=== PATIENT | male | born 1990 | race Caucasian/White ===

== ENCOUNTER 2018-03-05 10:06 | Emergency (ER) | payer OTHER ==
[2018-03-05 10:31] VITALS: BP 122/75; PULSE 73; RESP 18; TEMP 98.5
--- NOTE | 2018-03-05 11:50 | XR ---
EXAMINATION TYPE: XR lumbar spine 2 or 3V DATE OF EXAM: 03/05/2018 CLINICAL HISTORY: Increasing chronic low back pain. TECHNIQUE: Frontal and lateral images of the lumbar spine are obtained. COMPARISON: 08/24/2010 FINDINGS: There are 5 lumbar type vertebral bodies identified. There is a hypoplastic left 12th rib identified. The lumbar spine shows satisfactory alignment without evidence of acute fracture or dislo cation. Vertebral body heights and disk space heights are within normal limits. The overlying soft tissue appears unremarkable. IMPRESSION: No acute fracture or malalignment is seen in the lumbar spine.
--- NOTE | 2018-03-05 11:50 | ED ---
General Adult HPI - General Chief complaint: Back Pain/Injury Stated complaint: Back Pain Time Seen by Provider: 03/05/18 11:13 Source: patient, RN notes reviewed Mode of arrival: ambulatory Limitations: no limitations - History of Present Illness Initial comments: Patient 27-year-old male presented to the emergency room today with a chief complaint of increased lower back pain over the last month. He does admit that he's had some chronic back problems over the last few years. He states a month ago he was playing basketball went up to jump ball came down and had increased pain in his lower back that radiates down both left and right legs. He states worse with certain movements are particular states that when he goes from a seated to standing position pain increases. Patient does admit to a numbness sensation going down the back of the legs both on left and right at times. Denies any bowel or bladder incontinence retention. Denies any saddle anesthesia. Patient states he has not been taking anything for the symptoms. States he has tried to follow-up family doctor. They recommended physical therapy. Patient denies any recent fever, chills, shortness of breath, chest pain, abdominal pain, nausea or vomiting, headaches or visual changes, or any other complaints. - Related Data Previous Rx's Medication Instructions Recorded Cyclobenzaprine [Flexeril] 10 mg PO TID #20 tab 03/05/18 Dexamethasone 0.75 mg PO DIRECTED #12 tablet 03/05/18 Ibuprofen [Motrin] 600 mg PO Q6HR PRN #40 day 03/05/18 Allergies Allergy/AdvReac Type Severity Reaction Status Date / Time No Known Allergies Allergy Verified 03/05/18 10:31 Review of Systems ROS Statement: Those systems with pertinent positive or pertinent negative responses have been documented in the HPI. ROS Other: All systems not noted in ROS Statement are negative. Past Medical History Additional Past Medical History / Comment(s): chronic back pain History of Any Multi-Drug Resistant Organisms: None Reported Past Surgical History: Hernia Repair Past Psychological History: No Psychological Hx Reported Smoking Status: Light tobacco smoker Past Alcohol Use History: None Reported Past Drug Use History: None Reported General Exam - General Exam Comments Initial Comments: General: The patient is awake and alert, in no distress, and does not appear acutely ill. Eye: Pupils are equal, round and reactive to light, extra-ocular movements are intact. No nystagmus. There is normal conjunctiva bilaterally. No signs of icterus. Ears, nose, mouth and throat: There are moist mucous membranes and no oral lesions. Neck: The neck is supple, there is no tenderness or JVD. Cardiovascular: There is a regular rate and rhythm. No murmur, rub or gallop is appreciated. Respiratory: Lungs are clear to auscultation, respirations are non-labored, breath sounds are equal. No wheezes, stridor, rales, or rhonchi. Gastrointestinal: Soft, non-distended, non-tender abdomen without masses or organomegaly noted. There is no rebound or guarding present. No CVA tenderness. Musculoskeletal: Normal ROM. Patient normal appearance of thoracic and lumbar spine with no step-off or deformity. Mild tenderness lower lumbar L5-S1. tender both left and right sides in this area.. Strength 5/5. Sensation intact. Pulses equal bilaterally 2+. Neurological: A&O x 3. CN II-XII intact, There are no obvious motor or sensory deficits. Coordination appears grossly intact. Speech is normal. Skin: Skin is warm and dry and no rashes or lesions are noted. Psychiatric: Cooperative, appropriate mood & affect, normal judgment. Limitations: no limitations Course Vital Signs 03/05/18 10:28 Temperature 98.5 F Pulse Rate 73 Respiratory 18 Rate Blood Pressure 122/75 O2 Sat by Pulse 100 Oximetry Medical Decision Making - Medical Decision Making Patient reexamined showing no signs of distress. Resting comfortably. Patient' s x-rays negative for any acute abnormality. Was discussed with the patient about following up for further evaluation with MRI. Patient has bilateral leg numbness tingling at times. No bowel or bladder incontinence retention. No saddle anesthesia. Signs and symptoms for immediate return to emergency room or discussed with the patient in detail. Patient is advised to start anti- inflammatories with coarse steroids. He'll also be given a muscle relaxer to use but is advised that it may make him drowsy. Advised him to return for any other concerns. Disposition Clinical Impression: Acute low back pain Disposition: HOME SELF-CARE Condition: Good Instructions: Acute Low Back Pain (ED) Additional Instructions: Please follow-up family doctor/back specialist for further evaluation. Please use medications as prescribed. Please return to emergency room symptoms increase or worsen. Prescriptions: Cyclobenzaprine [Flexeril] 10 mg PO TID #20 tab Dexamethasone 0.75 mg PO DIRECTED #12 tablet Ibuprofen [Motrin] 600 mg PO Q6HR PRN #40 day PRN Reason: Pain Is patient prescribed a controlled substance at d/c from ED?: No Referrals: None,Stated [Primary Care Provider] - 1-2 days Hilaria Segura, [Doctor of Osteopathic Medicine] - 1-2 days Time of Disposition: 12:00
[2018-03-05] MEDS ORDERED: KETOROLAC 60 MG/2 ML VIAL IM STA (12:04)
== END 2018-03-05 12:15 | disposition home or self-care (01) ==
LOC: EC 10:06
DX: M54.5 Low back pain (principal); F17.200 Nicotine dependence, unspecified, uncomplicated; Z98.890 Other specified postprocedural states; X58.XXXA Exposure to other specified factors, initial encounter; Y93.67 Activity, basketball
CPT/HCPCS: 72100; 99283; 96372; J1885

== ENCOUNTER 2018-05-31 19:28 | Emergency (ER) | payer OTHER ==
[2018-05-31 19:48] VITALS: BP 130/74; PULSE 68; RESP 20; TEMP 98.7
[2018-05-31] MEDS ORDERED: KETOROLAC 30 MG/ML 1 ML VIAL IM STA (21:23)
[2018-05-31] MEDS ORDERED: ORPHENADRINE 30 MG/ML 2 ML VIAL IM STA (21:23)
--- NOTE | 2018-05-31 21:24 | ED ---
General Adult HPI - General Chief complaint: Back Pain/Injury Stated complaint: follow up/back pain Time Seen by Provider: 05/31/18 20:32 Source: patient, family, RN notes reviewed Mode of arrival: ambulatory Limitations: no limitations - History of Present Illness Initial comments: 27-year-old male presents the emergency department for a chief complaint of chronic back pain. Patient states this has been ongoing for years. Patient states he sometimes has flares of the back pain. Patient states when this occurred months ago he came to the emergency department and had a pain shot. Patient states that helped for the next few months until it worsened again a few weeks ago. Patient denies any injuries. He states pain is worsened with movement. He denies any saddle anesthesia or bladder or bowel changes. He denies any pain with urination. Patient also complains of left toe pain. He states 7 weeks ago he dropped a heavy object on the left toe. He states that it is improving but he would like it evaluated. Patient has no other complaints at this time including shortness of breath, chest pain, abdominal pain, nausea or vomiting, headache, or visual changes. - Related Data Home Medications Medication Instructions Recorded Confirmed No Known Home Medications 05/31/18 05/31/18 Allergies Allergy/AdvReac Type Severity Reaction Status Date / Time No Known Allergies Allergy Verified 05/31/18 19:48 Review of Systems ROS Statement: Those systems with pertinent positive or pertinent negative responses have been documented in the HPI. ROS Other: All systems not noted in ROS Statement are negative. Past Medical History Additional Past Medical History / Comment(s): chronic back pain History of Any Multi-Drug Resistant Organisms: None Reported Past Surgical History: Hernia Repair Past Psychological History: No Psychological Hx Reported Smoking Status: Light tobacco smoker Past Alcohol Use History: None Reported Past Drug Use History: None Reported General Exam Limitations: no limitations General appearance: alert, in no apparent distress Head exam: Present: atraumatic, normocephalic, normal inspection Eye exam: Present: normal appearance, PERRL, EOMI. Absent: scleral icterus, conjunctival injection, periorbital swelling ENT exam: Present: normal exam, mucous membranes moist Neck exam: Present: normal inspection, full ROM. Absent: tenderness, meningismus, lymphadenopathy Respiratory exam: Present: normal lung sounds bilaterally. Absent: respiratory distress, wheezes, rales, rhonchi, stridor Cardiovascular Exam: Present: regular rate, normal rhythm, normal heart sounds. Absent: systolic murmur, diastolic murmur, rubs, gallop, clicks GI/Abdominal exam: Present: soft, normal bowel sounds. Absent: distended, tenderness, guarding, rebound, rigid Extremities exam: Present: normal capillary refill (Capillary refill less than 2 seconds and DP pulse 2+ and lower extremities bilaterally), other (Sensation intact in lower extremities bilaterally). Absent: joint swelling (No swelling, ecchymosis, erythema, evidence of trauma of the left great toe. No evidence of infection.) Back exam: Present: paraspinal tenderness (Minimal paraspinal tenderness bilaterally in the lumbar area), vertebral tenderness (Minimal lumbar tenderness ) Neurological exam: Present: alert, oriented X3, CN II-XII intact Psychiatric exam: Present: normal affect, normal mood Course Vital Signs 05/31/18 19:44 Temperature 98.7 F Pulse Rate 68 Respiratory 20 Rate Blood Pressure 130/74 O2 Sat by Pulse 99 Oximetry Medical Decision Making - Medical Decision Making 87-year-old male presents for chronic back pain specifically requesting injection for pain. Patient states he received Toradol in the past and it helped for months. No saddle anesthesia, bladder or bowel changes. Patient denies IV drug abuse, fevers or chills, history of cancer, or chronic steroid use. Denies any recent injuries. On exam neurovascular intact in the lower extremities bilaterally. Minimal lumbar spine tenderness. Patient has about 45 of flexion in the lumbar spine. Patient was given Toradol as well as Norflex. He states he has a ride home. He was also given a follow-up to Dr. Segura. He was educated to return here if he has any worsening symptoms such as bladder or bowel changes or saddle anesthesia. These instructions were given both in writing and verbally. The patient voices understanding. No evidence of trauma of the left toe. Gait normal. I did offer x-ray the patient refuses at this time and states he does not think it is broken. He just wanted to make sure I didn't see anything obvious on the toe. Disposition Clinical Impression: Back pain Disposition: HOME SELF-CARE Condition: Good Instructions: Acute Low Back Pain (ED), Chronic Back Pain (ED) Additional Instructions: Please follow up with primary care or orthopedics. Please return to the emergency department if you have any worsening symptoms, bladder or bowel changes, or numbness of the groin or buttock Is patient prescribed a controlled substance at d/c from ED?: No Referrals: Hilaria Segura DO [Doctor of Osteopathic Medicine] - 1-2 days Shavon German MD [STAFF PHYSICIAN] - 1-2 days Time of Disposition: 21:23
== END 2018-05-31 21:43 | disposition home or self-care (01) ==
LOC: EC 19:28
DX: G89.29 Other chronic pain (principal); M54.9 Dorsalgia, unspecified; M79.675 Pain in left toe(s); F17.200 Nicotine dependence, unspecified, uncomplicated
CPT/HCPCS: 99283; 96372 ×2; J2360; J1885

== ENCOUNTER 2019-05-14 08:21 | Emergency (ER) | payer OTHER ==
[2019-05-14 08:28] VITALS: BP 134/90; PULSE 91; RESP 17; TEMP 98
[2019-05-14] MEDS ORDERED: DEXAMETHASONE SOD PHOSPHATE 10 MG/ML 1 ML VIAL IM STA (08:38)
--- NOTE | 2019-05-14 08:47 | ED ---
General Adult HPI - General Chief complaint: Back Pain/Injury Stated complaint: BACK PAIN Time Seen by Provider: 05/14/19 08:30 Source: patient, RN notes reviewed Mode of arrival: ambulatory Limitations: physical limitation - History of Present Illness Initial comments: Patient is a pleasant 28-year-old male presenting to the emergency Department with complaints of back pain. Patient has chronic back pain over the past couple of years. Patient has gone to neurologist. Patient was getting epidurals. Patient recently let his insurance lapsed because he did not sign 1 Of 3 on a piece of paper. Patient states she is the process of getting this back. Patient states back discomfort has increased because he has not been getting his epidurals recently. Patient requests Decadron injection. Patient refuses Toradol stating that it does not help at all. Patient states discomfort radiates mostly on the left leg however occasionally the right leg. No incontinence or retention of bowel or bladder. No new weakness. Patient has had previous MRI. Patient states he may be having surgery in the future based on neurology recommendations if epidurals did not help. - Related Data Previous Rx's Medication Instructions Recorded Dexamethasone [Decadron] 4 mg PO BID #8 tablet 05/14/19 Allergies Allergy/AdvReac Type Severity Reaction Status Date / Time No Known Allergies Allergy Verified 05/31/18 19:48 Review of Systems ROS Statement: Those systems with pertinent positive or pertinent negative responses have been documented in the HPI. ROS Other: All systems not noted in ROS Statement are negative. Constitutional: Denies: fever Eyes: Denies: eye pain ENT: Denies: ear pain Respiratory: Denies: cough Cardiovascular: Denies: chest pain Endocrine: Denies: fatigue Gastrointestinal: Denies: abdominal pain Genitourinary: Denies: dysuria Musculoskeletal: Reports: as per HPI, back pain Skin: Denies: rash Neurological: Denies: weakness Past Medical History Additional Past Medical History / Comment(s): chronic back pain History of Any Multi-Drug Resistant Organisms: None Reported Past Surgical History: Hernia Repair Past Psychological History: No Psychological Hx Reported Smoking Status: Light tobacco smoker Past Alcohol Use History: None Reported Past Drug Use History: None Reported General Exam Limitations: physical limitation General appearance: alert, in no apparent distress Head exam: Present: normocephalic Eye exam: Present: normal appearance ENT exam: Present: normal oropharynx Neck exam: Present: normal inspection Respiratory exam: Present: normal lung sounds bilaterally Cardiovascular Exam: Present: regular rate, normal rhythm GI/Abdominal exam: Present: soft. Absent: distended, tenderness, pulsatile mass Extremities exam: Present: normal inspection Back exam: Present: normal inspection. Absent: tenderness Neurological exam: Present: alert. Absent: motor sensory deficit Expanded Motor strength exam: RLE: 5, LLE: 5 Psychiatric exam: Present: normal affect, normal mood Skin exam: Present: normal color Course Vital Signs 05/14/19 08:22 Temperature 98.0 F Pulse Rate 91 Respiratory 17 Rate Blood Pressure 134/90 O2 Sat by Pulse 96 Oximetry Disposition Clinical Impression: Low back pain Disposition: HOME SELF-CARE Condition: Stable Instructions (If sedation given, give patient instructions): Acute Low Back Pain (ED) Additional Instructions: Please follow-up with your back doctor as well as primary care physician in the next couple days for recheck. [id number] Tylenol or Motrin as needed. Return for loss of control of bowel or bladder function, weakness, worsening symptoms or other concerns. Prescriptions: Dexamethasone [Decadron] 4 mg PO BID #8 tablet Is patient prescribed a controlled substance at d/c from ED?: No Referrals: Thong Carpio MD [REFERRING] - 1-2 days Shubham Santa MD [STAFF PHYSICIAN] - 1-2 days Time of Disposition: 08:47
== END 2019-05-14 09:08 | disposition home or self-care (01) ==
LOC: EC 08:21
DX: M54.5 Low back pain (principal); M79.605 Pain in left leg; M79.604 Pain in right leg; G89.29 Other chronic pain; F17.200 Nicotine dependence, unspecified, uncomplicated
CPT/HCPCS: 99283; 96372; J1100